=== PATIENT | female | born 1955 | race Caucasian/White ===

== ENCOUNTER 2019-12-03 09:22 | Emergency (ER) | payer OTHER, MEDICAID ==
[~2019-12-03] VITALS: Ht 162.6 cm; Wt 54.4 kg
[~2019-12-03 09:22] MED LIST: ALB2.5IS NEB; BENZ1TAB2 PO; CIPR250T3 PO; DICL1GEL50 TD; DIVA250T51 PO; FLU01T PO; GLIP5TAB12; HYDR12.56 PO; LEVO75TA42; LORA-516 PO; LORA1TAB23 PO; MAGN400T28 PO; PANT1INJ3 PO; PAR20T PO; RISP1TAB63 PO
[2019-12-03 14:53] VITALS: BP 127/43
== END 2019-12-03 13:34 | disposition home or self-care (01) ==
LOC: ER 09:22 → EDBD 09:22 → ER 13:34
DX: Z46.59 Encounter for fitting and adjustment of other gastrointestinal appliance and device (principal); E11.9 Type 2 diabetes mellitus without complications; I10 Essential (primary) hypertension; Z79.899 Other long term (current) drug therapy; Z88.0 Allergy status to penicillin; Z88.5 Allergy status to narcotic agent
CPT/HCPCS: 71045

== ENCOUNTER 2019-12-04 13:55 | Emergency (ER) | payer OTHER, MEDICAID ==
[~2019-12-04] VITALS: Ht 162.6 cm; Wt 54.9 kg
[2019-12-04 22:19] VITALS: BP 110/54
== END 2019-12-04 22:44 | disposition short-term general hospital (02) ==
LOC: ER 13:55 → EDBD 13:55 → ER 22:44
DX: Z46.59 Encounter for fitting and adjustment of other gastrointestinal appliance and device (principal); E11.22 Type 2 diabetes mellitus with diabetic chronic kidney disease; I12.9 Hypertensive chronic kidney disease with stage 1 through stage 4 chronic kidney disease, or unspecified chronic kidney disease; N18.30 Chronic kidney disease, stage 3 unspecified; Z79.899 Other long term (current) drug therapy; Z88.0 Allergy status to penicillin; Z88.5 Allergy status to narcotic agent

== ENCOUNTER 2022-10-28 13:17 | Inpatient (IN) | payer OTHER, MEDICAID ==
[~2022-10-28] VITALS: Ht 157.5 cm; Wt 49.7 kg
[~2022-10-28 13:17] MED LIST changes: -BENZ1TAB2 PO; +BENZ1TAB6 PO; -DICL1GEL50 TD; +DICL1GEL73 TD; +DIVA250T4 PO; -DIVA250T51 PO; -HYDR12.56 PO; +HYDR12.59 PO; +LORA-1123 PO; -LORA1TAB23 PO
[2022-10-28] MEDS ORDERED: SODIUM CHLORIDE 0.9% 1,000 ML IV ONE (13:30)
[2022-10-28 14:02] LABS: Basophils # (auto) 0.1 10 ^3/uL (0-0.2); Basophils % (auto) 0.6 % (0.0-2.0); Eosinophils # (auto) 0.1 10 ^3/uL (0-0.8); Hematocrit 27.8 % (36.0-46.0); Hemoglobin 8.8 g/dL (12.2-16.2); Lymphocytes # (auto) 1.5 10 ^3/uL (0.4-5.4); Lymphocytes % (auto) 12.1 % (10.0-50.0); Mean Corpuscular Hgb Conc. 31.7 g/dL (32.0-36.0); Mean Corpuscular Volume 97.7 fL (80.0-100.0); Monocytes # (auto) 0.6 10 ^3/uL (0-1.3); Monocytes % (auto) 4.6 % (0.0-12.0); Neutrophils # (auto) 10.1 10 ^3/uL (1.6-8.6); Neutrophils % (auto) 81.7 % (37.0-80.0); Red Blood Cells 2.85 10^6/uL (4.0-5.20); Red Cell Distribution Width 13.3 % (11.8-14.3); White Blood Cell 12.4 10^3/uL (4.4-10.8)
[2022-10-28 14:19] LABS: Alanine Aminotransferase 10 U/L (7-40); Albumin 4.1 g/dL (3.2-4.8); Alkaline Phosphatase 66 U/L (46-116); Anion Gap 4.3 (5-15); Aspartate Aminotransferase 14 U/L (13-40); BUN/Creatinine Ratio 21.6 (10.0-20.0); Bilirubin, Total 0.2 mg/dL (0.2-1.0); Blood Alcohol < 3.0 mg/dL (<10); Blood Urea Nitrogen 50 mg/dL (9-23); Calcium 8.5 mg/dL (8.5-10.1); Carbon Dioxide 33.7 mmol/L (20-30); Chloride 105 mmol/L (98-107); Glucose 222 mg/dL (74-106); Sodium 143 mmol/L (136-145); Total Protein 6.8 g/dL (5.7-8.2)
[2022-10-28 16:20] VITALS: PULSE 83; RESP 17; O2SAT 94
[2022-10-28 17:32] LABS: Base Excess -0.8 mmol/L (-2.0-2.0)
[2022-10-28] MEDS ORDERED: cefTRIAXone 1GM/50ML D5W 50 ML IV ONE (18:30)
[2022-10-28] MEDS ORDERED: DEXTROSE (50%) 50ML SYRG IV PRN (18:30)
[2022-10-28] MEDS ORDERED: ONDANSETRON HCL 4 MG/2 ML VIAL IV PRN (18:30)
[2022-10-28] MEDS ORDERED: ACETAMINOPHEN 325 MG TAB PO PRN (18:30)
[2022-10-28] MEDS ORDERED: HYDROcodone-ACET 5/325MG TAB PO PRN (18:30)
[2022-10-28] MEDS ORDERED: DOCUSATE SOD 100 MG CAP PO PRN (18:30)
[2022-10-28] MEDS ORDERED: NITROGLYCERIN 0.4 MG SL TAB SL PRN (18:45)
[2022-10-28] MEDS ORDERED: MORPHINE SULFATE INJ 2 MG/ml SYRG IV PRN (18:45)
[2022-10-28 18:54] LABS: Urine Bacteria FEW /hpf (None Seen); Urine Blood 1+ /uL (Negative); Urine Clarity CLOUDY (Clear); Urine Color Colorless (Yellow); Urine Mucus FEW (None Seen); Urine Protein, UAD 2+ (Negative); Urine Specific Gravity 1.015 (1.001-1.035); Urine Urobilinogen Normal (Negative); Urine WBC 836 /hpf (0 - 5); Urine WBC Clumps PRESENT /hpf (None Seen)
[2022-10-28 19:30] VITALS: PULSE 90; RESP 18; O2SAT 88
[2022-10-28 19:43] LABS: Base Excess 1.7 mmol/L (-2.0-2.0)
[2022-10-28] MEDS: ETOMIDATE (2MG/ML) 20ML VIAL IV ONE ×2 (20:00→20:42)
[2022-10-28] MEDS: SUCCINYLCHOLINE CHLORIDE 20 MG/ML 10ML VIAL IV ONE ×2 (20:00→20:43)
[2022-10-28 20:30] LABS: Base Excess -2.4 mmol/L (-2.0-2.0)
[2022-10-28] MEDS ORDERED: PROPOFOL 10 MG/ML 20 ML IV ONE (20:30)
[2022-10-28 20:33] LABS: Triglycerides 120 mg/dL (< 150)
[2022-10-28 20:34] LABS: LDL Cholesterol 43 mg/dL (< 100)
[2022-10-28 20:35] LABS: Cholesterol 129 mg/dL (< 200); HDL Cholesterol 54 mg/dL (40-59)
[2022-10-28 20:44] VITALS: BP 66/30; PULSE 74; RESP 16; O2SAT 98
[2022-10-28] MEDS: MIDAZOLAM DRIP 50 mg/50mL 50 ML IV SCH (20:44)
[2022-10-28] MEDS ORDERED: SODIUM CHLORIDE 0.9% 1,000 ML IV SCH (21:15)
[2022-10-28] MEDS ORDERED: fentaNYL Drip 2500mCg/250mlNS 250 ML IV ONE (21:21)
[2022-10-28] MEDS: fentaNYL Drip 2500mCg/250mlNS 250 ML IV SCH (21:26)
[2022-10-28] MEDS: SODIUM CHLOR 0.9% PF (SALINE LOCK) 10ML VIAL/SYR IV SCH (22:00)
[2022-10-28] MEDS ORDERED: NOREPINEPHRINE 8 MG/250ML KIT 250 ML IV ONE (22:19)
[2022-10-28 22:20] VITALS: BP 84/38; PULSE 75; RESP 16; O2SAT 88
[2022-10-28 22:31] LABS: Base Excess -3.6 mmol/L (-2.0-2.0)
[2022-10-28] MEDS: NOREPINEPHRINE 8 MG/250ML KIT 250 ML IV SCH (22:32)
[2022-10-28 23:45] VITALS: BP 84/38; PULSE 75; RESP 16; O2SAT 95
[2022-10-28] MEDS: FAMOTIDINE (10MG/ML) 2ML VL IV SCH (23:49)
[2022-10-28] MEDS: methylPREDNISolone SOD SUCC 40 MG/ML VL IV SCH (23:50)
[2022-10-28] MEDS: InsuLIN REG 1unit/0.01ml Soln (100units/ml) SC SCH (23:52)
[2022-10-28] MEDS: ACCU-CHEK COMFORT CURVE STRIP VI SCH (23:53)
[2022-10-29] VITALS (82 sets, daily range): BP systolic 78–223; BP diastolic 23–80; PULSE 50–83; RESP 15–22; TEMP 97.5–100.4; O2SAT 88–100
[2022-10-29] MEDS: MIDAZOLAM DRIP 50 mg/50mL 50 ML IV SCH ×4 (04:16→20:43)
[2022-10-29] MEDS: SODIUM CHLOR 0.9% PF (SALINE LOCK) 10ML VIAL/SYR IV SCH ×3 (06:00→22:16)
[2022-10-29 06:41] LABS: Alanine Aminotransferase < 9 U/L (7-40); Albumin 3.3 g/dL (3.2-4.8); Alkaline Phosphatase 47 U/L (46-116); Aspartate Aminotransferase 16 U/L (13-40); BUN/Creatinine Ratio 15.7 (10.0-20.0); Bilirubin, Total 0.2 mg/dL (0.2-1.0); Blood Urea Nitrogen 34 mg/dL (9-23); Calcium 7.7 mg/dL (8.5-10.1); Chloride 112 mmol/L (98-107); Glucose 171 mg/dL (74-106); Potassium 5.3 mmol/L (3.5-5.1); Sodium 144 mmol/L (136-145); Total Protein 5.8 g/dL (5.7-8.2)
[2022-10-29] MEDS: LEVOTHYROXINE SODIUM 25 MCG TAB PO SCH (06:47)
[2022-10-29] MEDS: methylPREDNISolone SOD SUCC 40 MG/ML VL IV SCH ×2 (06:47→13:56)
[2022-10-29] MEDS: InsuLIN REG 1unit/0.01ml Soln (100units/ml) SC SCH ×4 (06:56→22:00)
[2022-10-29 06:58] LABS: Base Excess -1.4 mmol/L (-2.0-2.0)
[2022-10-29] MEDS: ACCU-CHEK COMFORT CURVE STRIP VI SCH ×4 (06:58→22:16)
[2022-10-29 07:15] LABS: Basophils # (auto) 0 10 ^3/uL (0-0.2); Basophils % (auto) 0.8 % (0.0-2.0); Eosinophils # (auto) 0 10 ^3/uL (0-0.8); Eosinophils % (auto) 0.1 % (0.0-7.0); Hematocrit 30.8 % (36.0-46.0); Hemoglobin 9.8 g/dL (12.2-16.2); Lymphocytes # (auto) 0.3 10 ^3/uL (0.4-5.4); Lymphocytes % (auto) 8.7 % (10.0-50.0); Mean Corpuscular Hemoglobin 32.2 pg (28.0-32.0); Mean Corpuscular Hgb Conc. 31.7 g/dL (32.0-36.0); Mean Corpuscular Volume 101.5 fL (80.0-100.0); Monocytes # (auto) 0.6 10 ^3/uL (0-1.3); Monocytes % (auto) 15.8 % (0.0-12.0); Neutrophils # (auto) 2.7 10 ^3/uL (1.6-8.6); Neutrophils % (auto) 74.6 % (37.0-80.0); Nucleated Red Blood Cells % 0.1 %; Red Blood Cells 3.03 10^6/uL (4.0-5.20); Red Cell Distribution Width 13.5 % (11.8-14.3); White Blood Cell 3.7 10^3/uL (4.4-10.8)
[2022-10-29] MEDS ORDERED: SUCCINYLCHOLINE CHLORIDE 20 MG/ML 10ML VIAL IV ONE (08:00)
[2022-10-29] MEDS ORDERED: ETOMIDATE (2MG/ML) 20ML VIAL IV ONE (08:00)
[2022-10-29] MEDS ORDERED: cefTRIAXone 1GM/50ML D5W 50 ML IV SCH (09:00)
[2022-10-29 09:22] LABS: Protein, Urine 162.9 mg/dL (0.0-11.9)
[2022-10-29 09:24] LABS: Creatinine, Urine 67.31 mg/dL (30.0-125.0); Urine Protein/Creatinine Ratio 2.42
[2022-10-29] MEDS ORDERED: levoFLOXacin 250MG 50 ML IV SCH (10:00)
[2022-10-29] MEDS ORDERED: MULTIPLE VITAMIN TAB PO SCH (10:00)
[2022-10-29] MEDS ORDERED: ASPirin 81 mg TAB PO SCH (10:00)
[2022-10-29 13:01] LABS: COVID19 ANTIGEN SOFIA FIA NEGATIVE (NEGATIVE)
[2022-10-29] MEDS ORDERED: SODIUM ZIRCONIUM CYCL 10 GM PAK PO ONE (15:00)
[2022-10-29] MEDS ORDERED: MEROPENEM 1GM IVPB 100 ML IV ONE (15:00)
[2022-10-29] MEDS ORDERED: ENOXAPARIN SOD 30 MG/0.3 ML SYRINGE SC ONE (15:00)
[2022-10-29] MEDS: SODIUM CHLORIDE 0.9% 1,000 ML IV SCH (15:17)
[2022-10-29] MEDS: MEROPENEM 1GM IVPB 100 ML IV SCH (22:11)
[2022-10-29] MEDS: NOREPINEPHRINE 8 MG/250ML KIT 250 ML IV SCH (22:15)
[2022-10-30] VITALS (104 sets, daily range): BP systolic 90–148; BP diastolic 25–54; PULSE 59–84; RESP 19–22; TEMP 97.5–99.7; O2SAT 91–100
[2022-10-30] MEDS: fentaNYL Drip 2500mCg/250mlNS 250 ML IV SCH (02:51)
[2022-10-30 04:51] LABS: Basophils # (auto) 0.1 10 ^3/uL (0-0.2); Basophils % (auto) 0.6 % (0.0-2.0); Eosinophils # (auto) 0 10 ^3/uL (0-0.8); Hematocrit 24.3 % (36.0-46.0); Hemoglobin 7.8 g/dL (12.2-16.2); Lymphocytes # (auto) 0.9 10 ^3/uL (0.4-5.4); Lymphocytes % (auto) 9.1 % (10.0-50.0); Mean Corpuscular Hemoglobin 31.6 pg (28.0-32.0); Mean Corpuscular Hgb Conc. 32.2 g/dL (32.0-36.0); Monocytes # (auto) 0.4 10 ^3/uL (0-1.3); Monocytes % (auto) 4.4 % (0.0-12.0); Neutrophils # (auto) 8.2 10 ^3/uL (1.6-8.6); Neutrophils % (auto) 85.9 % (37.0-80.0); Red Blood Cells 2.48 10^6/uL (4.0-5.20); Red Cell Distribution Width 13.6 % (11.8-14.3); White Blood Cell 9.6 10^3/uL (4.4-10.8)
[2022-10-30 04:53] LABS: Alkaline Phosphatase 44 U/L (46-116); BUN/Creatinine Ratio 21.8 (10.0-20.0); Calcium 7.6 mg/dL (8.7-10.4); Chloride 108 mmol/L (98-107); Glucose 130 mg/dL (74-106); Potassium 5.2 mmol/L (3.5-5.1); Sodium 141 mmol/L (136-145)
[2022-10-30 04:54] LABS: Albumin 3.1 g/dL (3.2-4.8); Aspartate Aminotransferase 21 U/L (13-40)
[2022-10-30] MEDS: MIDAZOLAM DRIP 50 mg/50mL 50 ML IV SCH ×2 (04:54→18:59)
[2022-10-30 04:55] LABS: Bilirubin, Total < 0.2 mg/dL (0.2-1.0); Total Protein 5.6 g/dL (5.7-8.2)
[2022-10-30 05:36] LABS: Alanine Aminotransferase < 9 U/L (7-40); Blood Urea Nitrogen 52 mg/dL (9-23)
[2022-10-30] MEDS: SODIUM CHLOR 0.9% PF (SALINE LOCK) 10ML VIAL/SYR IV SCH ×4 (05:54→22:24)
[2022-10-30] MEDS: LEVOTHYROXINE SODIUM 25 MCG TAB PO SCH (06:38)
[2022-10-30] MEDS: ACCU-CHEK COMFORT CURVE STRIP VI SCH ×3 (06:38→16:22)
[2022-10-30] MEDS: InsuLIN REG 1unit/0.01ml Soln (100units/ml) SC SCH ×3 (06:38→16:22)
[2022-10-30 06:55] LABS: Base Excess -3.1 mmol/L (-2.0-2.0)
[2022-10-30] MEDS: FAMOTIDINE (10MG/ML) 2ML VL IV SCH (07:37)
[2022-10-30] MEDS: MEROPENEM 1GM IVPB 100 ML IV SCH ×2 (07:37→22:23)
[2022-10-30] MEDS: SODIUM CHLORIDE 0.9% 1,000 ML IV SCH (07:40)
[2022-10-30] MEDS ORDERED: ENOXAPARIN SOD 30 MG/0.3 ML SYRINGE SC SCH (10:00)
[2022-10-30] MEDS ORDERED: DEXTROSE (50%) 50ML SYRG IV PRN (14:30)
[2022-10-30] MEDS ORDERED: Glucerna 1.2 Cal 1Liter BOTTLE GT SCH (14:30)
[2022-10-30] MEDS ORDERED: SODIUM ZIRCONIUM CYCL 10 GM PAK PO ONE (14:30)
[2022-10-30 14:37] LABS: INR 1.14 (0.9-1.15); Partial Thromboplastin Time 31.8 SEC (24.5-34.5); Prothrombin Time 11.9 sec (9.3-11.8)
[2022-10-30] MEDS: LINEZOLID 600MG/300ML 300 ML IV SCH (14:50)
[2022-10-30] MEDS: FUROSEMIDE 40 MG/4 ML VIAL IV SCH (16:29)
[2022-10-30] MEDS ORDERED: LIDOCAINE 1% (LOCAL ANESTH.) PF 5ml SDV ID ONE (18:30)
[2022-10-30] MEDS ORDERED: LINEZOLID 600MG/300ML 300 ML IV SCH (22:00)
[2022-10-31] VITALS (110 sets, daily range): BP systolic 109–201; BP diastolic 28–75; PULSE 50–75; RESP 14–22; TEMP 96.6–99; O2SAT 92–100
[2022-10-31] MEDS: ACCU-CHEK COMFORT CURVE STRIP VI SCH ×4 (00:14→19:40)
[2022-10-31] MEDS: SODIUM CHLORIDE 0.9% 1,000 ML IV SCH ×3 (00:20→19:37)
[2022-10-31] MEDS: LINEZOLID 600MG/300ML 300 ML IV SCH ×2 (02:58→16:10)
[2022-10-31] MEDS: MIDAZOLAM DRIP 50 mg/50mL 50 ML IV SCH ×2 (02:58→08:04)
[2022-10-31 05:01] LABS: Alkaline Phosphatase 62 U/L (46-116); Anion Gap 8.6 (5-15); Aspartate Aminotransferase 21 U/L (13-40); BUN/Creatinine Ratio 23.3 (10.0-20.0); Bilirubin, Total 0.2 mg/dL (0.2-1.0); Blood Urea Nitrogen 58 mg/dL (9-23); Calcium 7.7 mg/dL (8.7-10.4); Carbon Dioxide 22.4 mmol/L (20-30); Chloride 108 mmol/L (98-107); Glucose 180 mg/dL (74-106); Potassium 4.2 mmol/L (3.5-5.1); Sodium 139 mmol/L (136-145); Total Protein 5.3 g/dL (5.7-8.2)
[2022-10-31 05:12] LABS: Alanine Aminotransferase < 9 U/L (7-40)
[2022-10-31] MEDS: FUROSEMIDE 40 MG/4 ML VIAL IV SCH ×2 (06:00→19:39)
[2022-10-31] MEDS: SODIUM CHLOR 0.9% PF (SALINE LOCK) 10ML VIAL/SYR IV SCH ×5 (06:16→22:26)
[2022-10-31] MEDS: InsuLIN REG 1unit/0.01ml Soln (100units/ml) SC SCH ×4 (06:21→19:40)
[2022-10-31] MEDS: LEVOTHYROXINE SODIUM 25 MCG TAB PO SCH (06:27)
[2022-10-31 06:37] LABS: Basophils # (auto) 0 10 ^3/uL (0-0.2); Eosinophils # (auto) 0.3 10 ^3/uL (0-0.8); Monocytes # (auto) 0.2 10 ^3/uL (0-1.3)
[2022-10-31 06:39] LABS: Basophils % (auto) 0.4 % (0.0-2.0); Eosinophils % (auto) 3.4 % (0.0-7.0); Hematocrit 20.5 % (36.0-46.0); Lymphocytes # (auto) 0.4 10 ^3/uL (0.4-5.4); Lymphocytes % (auto) 5.3 % (10.0-50.0); Mean Corpuscular Hemoglobin 31.1 pg (28.0-32.0); Mean Corpuscular Hgb Conc. 32.6 g/dL (32.0-36.0); Mean Corpuscular Volume 95.5 fL (80.0-100.0); Neutrophils % (auto) 87.9 % (37.0-80.0); Red Blood Cells 2.14 10^6/uL (4.0-5.20); Red Cell Distribution Width 13.7 % (11.8-14.3)
[2022-10-31 06:45] LABS: Hemoglobin 6.7 g/dL (12.2-16.2)
[2022-10-31] MEDS: NOREPINEPHRINE 8 MG/250ML KIT 250 ML IV SCH ×2 (08:02→22:15)
[2022-10-31 09:02] LABS: Base Excess -1.3 mmol/L (-2.0-2.0)
[2022-10-31] MEDS: MEROPENEM 1GM IVPB 100 ML IV SCH ×2 (09:54→22:25)
[2022-10-31] MEDS: PANTOPRAZOLE 40 MG/10 ML VIAL INJ IV SCH ×2 (09:58→22:25)
[2022-10-31] MEDS: fentaNYL Drip 2500mCg/250mlNS 250 ML IV SCH ×2 (10:00→21:30)
[2022-10-31 11:39] LABS: Hemoglobin 7.5 g/dL (12.2-16.2)
[2022-10-31 11:41] LABS: Hematocrit 22.7 % (36.0-46.0)
[2022-10-31] MEDS ORDERED: hydrALAZINE HCL 20 MG/ML VL IV ONE (16:00)
[2022-10-31] MEDS ORDERED: hydrALAZINE HCL 20 MG/ML VL IV PRN (16:00)
[2022-10-31 21:20] LABS: Hematocrit 32.8 % (36.0-46.0); Hemoglobin 11.1 g/dL (12.2-16.2)
[2022-11-01] VITALS (100 sets, daily range): BP systolic 116–184; BP diastolic 39–71; PULSE 51–72; RESP 12–23; TEMP 97.5–99.9; O2SAT 96–100
[2022-11-01] MEDS: LINEZOLID 600MG/300ML 300 ML IV SCH ×2 (02:59→13:42)
[2022-11-01 04:29] LABS: Basophils # (auto) 0 10 ^3/uL (0-0.2); Basophils % (auto) 0.1 % (0.0-2.0); Eosinophils # (auto) 0.4 10 ^3/uL (0-0.8); Eosinophils % (auto) 5.1 % (0.0-7.0); Hematocrit 28.6 % (36.0-46.0); Hemoglobin 9.6 g/dL (12.2-16.2); Lymphocytes # (auto) 0.4 10 ^3/uL (0.4-5.4); Lymphocytes % (auto) 5.1 % (10.0-50.0); Mean Corpuscular Hemoglobin 30.5 pg (28.0-32.0); Mean Corpuscular Hgb Conc. 33.6 g/dL (32.0-36.0); Mean Corpuscular Volume 90.6 fL (80.0-100.0); Monocytes # (auto) 0.2 10 ^3/uL (0-1.3); Neutrophils # (auto) 6.4 10 ^3/uL (1.6-8.6); Neutrophils % (auto) 86.7 % (37.0-80.0); Red Blood Cells 3.16 10^6/uL (4.0-5.20); Red Cell Distribution Width 15.4 % (11.8-14.3); White Blood Cell 7.4 10^3/uL (4.4-10.8)
[2022-11-01 05:01] LABS: Alkaline Phosphatase 100 U/L (46-116); Anion Gap 10.1 (5-15); BUN/Creatinine Ratio 27.5 (10.0-20.0); Blood Urea Nitrogen 49 mg/dL (9-23); Carbon Dioxide 20.9 mmol/L (20-30); Chloride 113 mmol/L (98-107); Glucose 177 mg/dL (74-106); Potassium 3.5 mmol/L (3.5-5.1); Sodium 144 mmol/L (136-145)
[2022-11-01 05:02] LABS: Albumin 2.6 g/dL (3.2-4.8); Aspartate Aminotransferase 14 U/L (13-40); Bilirubin, Total 0.4 mg/dL (0.2-1.0); Total Protein 4.7 g/dL (5.7-8.2)
[2022-11-01 05:08] LABS: Alanine Aminotransferase < 9 U/L (7-40)
[2022-11-01 05:17] LABS: % Iron Saturation 9.7 % (15-50)
[2022-11-01] MEDS: SODIUM CHLOR 0.9% PF (SALINE LOCK) 10ML VIAL/SYR IV SCH ×3 (07:21→13:43)
[2022-11-01] MEDS: ACCU-CHEK COMFORT CURVE STRIP VI SCH ×4 (07:21→17:24)
[2022-11-01] MEDS: LEVOTHYROXINE SODIUM 25 MCG TAB PO SCH (07:21)
[2022-11-01] MEDS: FUROSEMIDE 40 MG/4 ML VIAL IV SCH ×2 (07:21→17:23)
[2022-11-01] MEDS: InsuLIN REG 1unit/0.01ml Soln (100units/ml) SC SCH ×4 (07:30→17:24)
[2022-11-01 08:05] LABS: Base Excess -0.1 mmol/L (-2.0-2.0)
[2022-11-01] MEDS: MEROPENEM 1GM IVPB 100 ML IV SCH (10:02)
[2022-11-01] MEDS: PANTOPRAZOLE 40 MG/10 ML VIAL INJ IV SCH (10:02)
[2022-11-01] MEDS: POTASSIUM CHL 20MEQ/100ML 100 ML IV SCH ×2 (11:25→13:43)
[2022-11-01] MEDS: MIDAZOLAM DRIP 50 mg/50mL 50 ML IV SCH (16:01)
[2022-11-01 16:42] LABS: Hemoglobin 10.8 g/dL (12.2-16.2)
== END 2022-11-01 22:10 | disposition short-term general hospital (02) | DRG 871 ==
LOC: EDBD 13:17 → ER 13:17 → TELE 18:45 → ICU WEST 10-29 06:05
PROVIDERS: ADMIT Nurse Practitioner Family; ATTEND Internal Medicine
PROC: 5A09357 Assistance with Respiratory Ventilation, Less than 24 Consecutive Hours, Continuous Positive Airway Pressure (ICD-10-PCS; 2022-10-28)
PROC: 5A1945Z Respiratory Ventilation, 24-96 Consecutive Hours (ICD-10-PCS; principal; 2022-10-29)
PROC: 0BH17EZ Insertion of Endotracheal Airway into Trachea, Via Natural or Artificial Opening (ICD-10-PCS; 2022-10-29)
PROC: 02HV33Z Insertion of Infusion Device into Superior Vena Cava, Percutaneous Approach (ICD-10-PCS; 2022-10-30)
PROC: B548ZZA Ultrasonography of Superior Vena Cava, Guidance (ICD-10-PCS; 2022-10-30)
PROC: 30233N1 Transfusion of Nonautologous Red Blood Cells into Peripheral Vein, Percutaneous Approach (ICD-10-PCS; 2022-10-31)
DX: A41.01 Sepsis due to Methicillin susceptible Staphylococcus aureus (principal); G93.41 Metabolic encephalopathy; J96.01 Acute respiratory failure with hypoxia; J96.02 Acute respiratory failure with hypercapnia; N17.0 Acute kidney failure with tubular necrosis; J15.211 Pneumonia due to Methicillin susceptible Staphylococcus aureus; J15.212 Pneumonia due to Methicillin resistant Staphylococcus aureus; R65.21 Severe sepsis with septic shock; E87.29 Other acidosis; J98.11 Atelectasis; N39.0 Urinary tract infection, site not specified; I47.20 Ventricular tachycardia, unspecified; B96.5 Pseudomonas (aeruginosa) (mallei) (pseudomallei) as the cause of diseases classified elsewhere; N18.30 Chronic kidney disease, stage 3 unspecified; D64.9 Anemia, unspecified; E03.9 Hypothyroidism, unspecified; F39 Unspecified mood [affective] disorder; Z20.822 Contact with and (suspected) exposure to COVID-19; R62.50 Unspecified lack of expected normal physiological development in childhood; I12.9 Hypertensive chronic kidney disease with stage 1 through stage 4 chronic kidney disease, or unspecified chronic kidney disease; E11.22 Type 2 diabetes mellitus with diabetic chronic kidney disease; H91.91 Unspecified hearing loss, right ear; Z93.3 Colostomy status; Z88.0 Allergy status to penicillin; Q03.9 Congenital hydrocephalus, unspecified; Z80.8 Family history of malignant neoplasm of other organs or systems; Z82.5 Family history of asthma and other chronic lower respiratory diseases; Z86.73 Personal history of transient ischemic attack (TIA), and cerebral infarction without residual deficits; Z87.11 Personal history of peptic ulcer disease
CPT/HCPCS: 36415; 36569; 36600; 70450; 71045; 76775; 80053; 80061; 80320; 81001; 82270; 82306; 82570; 82607; 82746; 82805; 82962; 83036; 83540; 83550; 83605; 83735; 83880; 83970; 84100; 84156; 84300; 84443; 84484; 85014; 85018; 85025; 85610; 85730; 86850; 86900; 86901; 86920; 87040; 87070; 87077; 87081; 87086; 87088; 87186; 87205; 87426; 93005; 93306; 94003; 94660; 96360; 99291; C9113; G0378; J0330; J1815; J2185; J2250; J3480; J3490